=== PATIENT | female | born 1955 ===

== ENCOUNTER → 2018-08-30 13:00 | Outpatient (REF) | payer OTHER, SELFPAY ==
[2018-08-30 13:46] LABS: Alanine Aminotransferase 22 IU/L (9-52); Albumin Globulin Ratio 1.4 (1.0-2.8); Alkaline Phosphatase 96 U/L (38-126); Aspartate Aminotransferase 22 IU/L (14-36); BUN Creatinine Ratio 24.3 (6-22); Bilirubin Total 0.2 mg/dL (0.2-1.3); Blood Urea Nitrogen 17 mg/dL (7-17); Carbon Dioxide 26 mmol/L (22-32); Chloride 106 mmol/L (98-107); Cholesterol 167 mg/dL (140-199); Estimated Glomerular Filt Rate > 60.0 mL/min (>60); Globulin 2.9 g/dL (1.7-4.1); Glucose 117 mg/dL (80-110); HDL Cholesterol 68 mg/dL (40-60); HEMOLYSIS 20 (0-50); LDL Cholesterol Calculated 83 mg/dL (<100); Sodium 144 mmol/L (137-145); Total Protein 6.9 g/dL (6.3-8.2); Triglycerides 82 mg/dL (35-150)
[2018-08-30 13:49] LABS: Add Manual Diff / Slide Review NO; Basophils Percent Auto 0.8 % (0-2); Eosinophils Percent Auto 0.8 % (2-4); Hematocrit 38.6 % (36-46); Hemoglobin 13.2 g/dL (12.0-16.0); Lymphocytes Percent Auto 28.6 % (25-40); Mean Corpuscular HGB Conc 34.1 % (30-36); Mean Corpuscular Hemoglobin 31.8 PG (26-34); Mean Corpuscular Volume 93.2 fL (80-100); Monocytes Percent Auto 5.9 % (3-14); Neutrophils Absolute Auto 4200 /uL (3000-5900); Neutrophils Percent Auto 63.9 % (50-75); Platelet Count 193 X10^3/uL (150-400); Red Blood Cell Count 4.14 X10^6/uL (4.0-5.2); Red Cell Distribution Width 13.1 % (11.6-14.8); White Blood Cell Count 6.5 X10^3/uL (4.5-11.0)
[2018-08-30 13:52] LABS: High Sensitivity CRP - Cardiac 1.3 mg/L (1.0-3.0)
[2018-08-30 14:06] LABS: Free T3, Triiodothyronine Free 6.45 pg/mL (2.77-5.27); Free T4, Direct Thyroxine 0.52 ng/dL (0.78-2.19)
[2018-08-30 14:20] LABS: Thyroid Stimulating Hormone 0.36 uIU/mL (0.47-4.68)
[2018-08-30 15:30] LABS: Vitamin D 25 Hydroxy (D3) 85.5 ng/mL (30.0-100.0)
== END ==
LOC: LAB 13:00
PROVIDERS: Visit Provider Family Medicine
DX: G30.8 Other Alzheimer's disease (principal); L40.8 Other psoriasis; Z78.0 Asymptomatic menopausal state; Z13.220 Encounter for screening for lipoid disorders
CPT/HCPCS: 36415; 80053; 80061; 82306; 84439; 84443; 84481; 85025; 86140